=== PATIENT | female | born 1950 | race Two or more races ===

== ENCOUNTER 2019-11-09 11:45 | Day surgery (SDC) | payer OTHER ==
[~2019-11-09 11:45] MED LIST: CLONAZEPAM0.125 MG PO; CYMBALTA20 MG PO; PRILOSEC10 MG PO; RESTORIL15 MG PO; TENORMIN25 MG PO
== END 2019-11-09 20:05 | disposition home or self-care (01) ==
LOC: CIR.AMB 11:45
PROVIDERS: ATTEND Orthopaedic Surgery
DX: M75.122 Complete rotator cuff tear or rupture of left shoulder, not specified as traumatic (principal)